=== PATIENT | male | born 1945 | race Caucasian/White ===

== ENCOUNTER 2016-11-25 08:54 | Emergency (ER) | payer OTHER ==
[~2016-11-25] VITALS: Ht 188 cm; Wt 96.4 kg
[~2016-11-25 08:54] MED LIST: ALBUTEROL SULF8.5 GM IH; ASPIRIN325 MG PO; CARVEDILOL3.125 MG PO; CEFTRIAXONE2 G1 IV; CLOPIDOGREL75 MG PO; ENDOCET 5-3251 EACH PO; FLORASTOR250 MG PO; LEVEMIR100 UNIT/2 SC; LOSARTAN POTASS25 MG PO; NITROSTAT0.4 MG SL; NOVOLOG PE100 UNITS/ SC; PRAVASTATIN SOD80 MG PO; RANEXA500 MG PO; TYLENOL REGULA325 MG PO; VENTOLIN HFA18 GM IH; Xylocaine 5% TP
[2016-11-25 09:38] LABS: BASOPHIL COUNT 0.1 K/uL (0-0.1); EOSINOPHIL (%) 3.3 % (0-5); EOSINOPHIL COUNT 0.3 K/uL (0-0.3); HEMATOCRIT 36.8 % (38.0-50.0); IMMATURE GRANULOCYTE (%) 0.2 % (0.0-0.7); INSTRUMENT ABS NEUTROPHIL CT 6.1 K/uL; LYMPHOCYTE COUNT 1.4 K/uL (1.0-2.8); MCH 28.5 PG (29.0-34.0); MCHC 35.1 G/DL (30.0-36.0); MCV 81.4 FL (86-99); MEAN PLAT.VOLUME 10.8 uM^3 (9.0-12.4); MONOCYTE (%) 8.5 % (3-12); MONOCYTE COUNT 0.7 K/uL (0-0.8); NEUTROPHIL (%) 71.2 % (45-76); NEUTROPHIL COUNT 6.1 K/uL (1.8-6.4); PLATELET COUNT 201 K/uL (156-360); RBC DIS.WIDTH-CV 12.3 % (11.8-14.6); RBC DIS.WIDTH-SD 36.1 % (39-53); RED BLOOD COUNT 4.52 M/uL (4.00-5.50); WHITE BLOOD COUNT 8.6 K/uL (4.1-10.2)
[2016-11-25 09:48] LABS: CHLORIDE 105 mEq/L (99-109); SODIUM 138 mEq/L (136-147)
[2016-11-25 09:51] LABS: GLUCOSE 196 mg/dL (70-99)
[2016-11-25 09:52] LABS: ANION GAP 8 MEQ/L (2-14)
[2016-11-25 09:53] LABS: TOTAL BILIRUBIN 0.5 mg/dL (0.0-1.0)
[2016-11-25 09:54] LABS: ALKALINE PHOSPHATASE 61 IU/L (3-129); GFR ESTIMATE (CALCULATED) > 59 mL/min/
[2016-11-25 09:55] LABS: UREA NITROGEN (BUN) 13 mg/dL (9-23)
[2016-11-25 10:17] LABS: TROP-I INTERPRETATION NEGATIVE; TROPONIN-I 0.01 ng/mL (0.0-0.30)
[2016-11-25 12:27] VITALS: BP 116/66
== END 2016-11-25 12:40 | disposition short-term general hospital (02) ==
LOC: EME → EDBD 08:54 → EME 12:40
PROVIDERS: Physician Assistant
DX: I25.110 Atherosclerotic heart disease of native coronary artery with unstable angina pectoris (principal); I48.91 Unspecified atrial fibrillation; E11.9 Type 2 diabetes mellitus without complications; Z79.4 Long term (current) use of insulin; I10 Essential (primary) hypertension; I25.2 Old myocardial infarction; Z95.5 Presence of coronary angioplasty implant and graft; J44.9 Chronic obstructive pulmonary disease, unspecified; Z86.74 Personal history of sudden cardiac arrest
CPT/HCPCS: 71020; 80053; 81003; 83880; 84484; 85025; 93005; 99281; 99285; J2405; J3010

== ENCOUNTER 2017-03-02 20:00 | Inpatient (IN) | payer OTHER ==
[~2017-03-02] VITALS: Ht 188 cm; Wt 102.2 kg
[2017-03-02 21:16] LABS: HEMATOCRIT 31.8 % (38.0-50.0); MCH 28.6 PG (29.0-34.0); MCV 84.4 FL (86-99); MEAN PLAT.VOLUME 10.2 uM^3 (9.0-12.4); PLATELET COUNT 371 K/uL (156-360); RBC DIS.WIDTH-CV 13.2 % (11.8-14.6); RBC DIS.WIDTH-SD 40.2 % (39-53); RED BLOOD COUNT 3.77 M/uL (4.00-5.50); WHITE BLOOD COUNT 11.7 K/uL (4.1-10.2)
[2017-03-02 21:25] LABS: CARBON DIOXIDE (BICARBONATE) 31.3 MEQ/L (20-31); CHLORIDE 103 mEq/L (99-109); POTASSIUM 4.4 mEq/L (3.7-5.4); SODIUM 137 mEq/L (136-147)
[2017-03-02 21:27] LABS: GLUCOSE 294 mg/dL (70-99)
[2017-03-02 21:28] LABS: ANION GAP 8 MEQ/L (2-14)
[2017-03-02 21:31] LABS: GFR ESTIMATE (CALCULATED) > 59 mL/min/
[2017-03-02 21:32] LABS: UREA NITROGEN (BUN) 23 mg/dL (9-23)
[2017-03-02 21:39] LABS: TROP-I INTERPRETATION NEGATIVE; TROPONIN-I 0.05 ng/mL (0.0-0.30)
[2017-03-02] MEDS ORDERED: OXAYDO5 MG PO (23:18)
[2017-03-02] MEDS ORDERED: HUMULIN R100 UNITS/ SC ×2 (23:20→23:39)
[2017-03-02] MEDS ORDERED: ZANTAC150 MG PO (23:22)
[2017-03-02] MEDS ORDERED: NEURONTIN600 MG PO (23:23)
[2017-03-02] MEDS ORDERED: LIPITOR80 MG PO (23:24)
[2017-03-02] MEDS ORDERED: METOPROLOL TART25 MG PO (23:27)
[2017-03-02] MEDS ORDERED: GLUCOSE4 GM PO (23:27)
[2017-03-02] MEDS ORDERED: PROAIR RESPICL90 MCG IH (23:30)
[2017-03-02] MEDS ORDERED: COLACE100 MG PO (23:31)
[2017-03-02] MEDS ORDERED: LASIX20 MG PO (23:32)
[2017-03-02] MEDS ORDERED: K-TAB10 MEQ PO (23:33)
[2017-03-02] MEDS ORDERED: MUPIROCIN22 GM TP (23:35)
[2017-03-02] MEDS ORDERED: TYLENOL REGULA325 MG PO (23:36)
[2017-03-02] MEDS ORDERED: MILK OF MAGN PO (23:38)
[2017-03-02] MEDS ORDERED: MUCUS RELIEF C PO (23:43)
[2017-03-02] MEDS ORDERED: LANTUS 10100 UNITS/ SC (23:45)
[2017-03-03] VITALS (7 sets, daily range): BP systolic 100–128; BP diastolic 59–76
[2017-03-03 01:38] LABS: INTER. NORMALIZED RATIO 1.2; PROTHROMBIN TIME 14.1 SEC (10.2-12.9)
[2017-03-03 01:41] LABS: PTT 27.9 SEC (25-37)
[2017-03-03 07:57] LABS: POINT-OF-CARE METER ID UU14174216
[2017-03-03 09:34] LABS: HEMATOCRIT 33.7 % (38.0-50.0); MCH 28.3 PG (29.0-34.0); MCHC 33.5 G/DL (30.0-36.0); MCV 84.3 FL (86-99); MEAN PLAT.VOLUME 10.2 uM^3 (9.0-12.4); PLATELET COUNT 387 K/uL (156-360); RBC DIS.WIDTH-CV 13.3 % (11.8-14.6); RBC DIS.WIDTH-SD 40.8 % (39-53); WHITE BLOOD COUNT 12.9 K/uL (4.1-10.2)
[2017-03-03 11:18] LABS: TROP-I INTERPRETATION NEGATIVE; TROPONIN-I 0.07 ng/mL (0.0-0.30)
[2017-03-03 11:22] LABS: POINT-OF-CARE METER ID UU14174216
[2017-03-03 13:13] LABS: Estimated Average Glucose 223 mg/dL (70-123); HEMOGLOBIN A1c (GLYCOHEMOGLOB) 9.4 % HGB (Below 5.7)
[2017-03-03 13:14] LABS: INTER. NORMALIZED RATIO 1.3; PROTHROMBIN TIME 14.7 SEC (10.2-12.9)
[2017-03-03 13:17] LABS: PTT 65.4 SEC (25-37)
[2017-03-03 16:25] LABS: POINT-OF-CARE METER ID UU14174216
[2017-03-03 17:48] LABS: TROP-I INTERPRETATION NEGATIVE; TROPONIN-I 0.07 ng/mL (0.0-0.30)
[2017-03-03 21:01] LABS: POINT-OF-CARE METER ID UU13113698
[2017-03-03 23:10] LABS: TROP-I INTERPRETATION NEGATIVE; TROPONIN-I 0.07 ng/mL (0.0-0.30)
[2017-03-04 04:06] VITALS: BP 105/84
[2017-03-04 06:02] LABS: BASOPHIL COUNT 0.1 K/uL (0-0.1); EOSINOPHIL (%) 4.9 % (0-5); EOSINOPHIL COUNT 0.7 K/uL (0-0.3); HEMATOCRIT 32.3 % (38.0-50.0); IMMATURE GRANULOCYTE (%) 0.7 % (0.0-0.7); IMMATURE GRANULOCYTE COUNT 0.1 K/uL; INSTRUMENT ABS NEUTROPHIL CT 10.3 K/uL; LYMPHOCYTE COUNT 2.2 K/uL (1.0-2.8); MCH 27.9 PG (29.0-34.0); MCHC 33.1 G/DL (30.0-36.0); MCV 84.3 FL (86-99); MEAN PLAT.VOLUME 10.4 uM^3 (9.0-12.4); MONOCYTE (%) 7.2 % (3-12); NEUTROPHIL (%) 71.3 % (45-76); NEUTROPHIL COUNT 10.3 K/uL (1.8-6.4); PLATELET COUNT 382 K/uL (156-360); RBC DIS.WIDTH-CV 13.3 % (11.8-14.6); RBC DIS.WIDTH-SD 40.7 % (39-53); RED BLOOD COUNT 3.83 M/uL (4.00-5.50); WHITE BLOOD COUNT 14.4 K/uL (4.1-10.2)
[2017-03-04 06:14] LABS: INTER. NORMALIZED RATIO 1.3; PROTHROMBIN TIME 14.7 SEC (10.2-12.9)
[2017-03-04 06:17] LABS: PTT 61.6 SEC (25-37)
[2017-03-04 06:37] LABS: ANION GAP 6 MEQ/L (2-14); CHLORIDE 102 MEQ/L (99-109); POTASSIUM 4.3 MEQ/L (3.7-5.4); SAMPLE HEMOLYSIS CHECK 0; SAMPLE ICTERIC CHECK 0; SAMPLE LIPEMIA CHECK 0; SODIUM 135 MEQ/L (136-147); TOTAL BILIRUBIN 0.5 MG/DL (0.0-1.0)
[2017-03-04 06:42] LABS: ALKALINE PHOSPHATASE 74 IU/L (3-129); GFR ESTIMATE (CALCULATED) > 59 mL/min/; UREA NITROGEN (BUN) 21 mg/dL (9-23)
[2017-03-04 06:47] LABS: GLUCOSE 120 mg/dL (70-99)
[2017-03-04 07:24] VITALS: BP 110/65
[2017-03-04 08:06] LABS: POINT-OF-CARE METER ID UU14314088
[2017-03-04 11:08] LABS: POINT-OF-CARE METER ID UU14174216
[2017-03-04 12:09] VITALS: BP 119/57
[2017-03-04 16:15] LABS: POINT-OF-CARE METER ID UU14174216
[2017-03-04 19:37] VITALS: BP 137/61
[2017-03-04 21:38] LABS: POINT-OF-CARE METER ID UU14314088
[2017-03-04 23:16] VITALS: BP 117/61
[2017-03-05 03:43] VITALS: BP 133/76
[2017-03-05 06:00] LABS: BASOPHIL COUNT 0.1 K/uL (0-0.1); EOSINOPHIL (%) 4.9 % (0-5); EOSINOPHIL COUNT 0.6 K/uL (0-0.3); HEMATOCRIT 31.8 % (38.0-50.0); IMMATURE GRANULOCYTE (%) 0.6 % (0.0-0.7); IMMATURE GRANULOCYTE COUNT 0.1 K/uL; INSTRUMENT ABS NEUTROPHIL CT 9.3 K/uL; LYMPHOCYTE COUNT 1.6 K/uL (1.0-2.8); MCHC 33.3 G/DL (30.0-36.0); MCV 84.1 FL (86-99); MEAN PLAT.VOLUME 10.7 uM^3 (9.0-12.4); MONOCYTE (%) 7.9 % (3-12); NEUTROPHIL (%) 73.3 % (45-76); NEUTROPHIL COUNT 9.3 K/uL (1.8-6.4); PLATELET COUNT 396 K/uL (156-360); RBC DIS.WIDTH-CV 13.3 % (11.8-14.6); RBC DIS.WIDTH-SD 40.6 % (39-53); RED BLOOD COUNT 3.78 M/uL (4.00-5.50); WHITE BLOOD COUNT 12.6 K/uL (4.1-10.2)
[2017-03-05 06:31] LABS: ALKALINE PHOSPHATASE 79 IU/L (3-129); ANION GAP 8 MEQ/L (2-14); CHLORIDE 105 MEQ/L (99-109); GFR ESTIMATE (CALCULATED) > 59 mL/min/; GLUCOSE 148 mg/dL (70-99); POTASSIUM 4.1 MEQ/L (3.7-5.4); SAMPLE HEMOLYSIS CHECK 0; SAMPLE ICTERIC CHECK 0; SAMPLE LIPEMIA CHECK 0; SODIUM 139 MEQ/L (136-147); TOTAL BILIRUBIN 0.5 MG/DL (0.0-1.0); UREA NITROGEN (BUN) 23 mg/dL (9-23)
[2017-03-05 07:48] LABS: POINT-OF-CARE METER ID UU13113781
[2017-03-05 08:04] VITALS: BP 112/61
[2017-03-05] MEDS ORDERED: ELIQUIS5 MG PO ×2 (09:37→09:38)
== END 2017-03-05 11:05 | DRG 176 ==
LOC: EME 20:00 → 4EAST 03-03 00:42 → EDOF 03-03 00:42 → ENRESERV 03-03 00:44 → 4EAST 03-03 03:29
PROVIDERS: Emergency Medicine; Hospitalist
DX: I26.99 Other pulmonary embolism without acute cor pulmonale (principal); I25.119 Atherosclerotic heart disease of native coronary artery with unspecified angina pectoris; E11.42 Type 2 diabetes mellitus with diabetic polyneuropathy; I10 Essential (primary) hypertension; I48.1 Persistent atrial fibrillation; I48.2 Chronic atrial fibrillation; I48.92 Unspecified atrial flutter; R91.1 Solitary pulmonary nodule; J44.9 Chronic obstructive pulmonary disease, unspecified; R00.0 Tachycardia, unspecified; E78.5 Hyperlipidemia, unspecified; J45.20 Mild intermittent asthma, uncomplicated; K21.9 Gastro-esophageal reflux disease without esophagitis; Z95.1 Presence of aortocoronary bypass graft; Z95.5 Presence of coronary angioplasty implant and graft; Z79.01 Long term (current) use of anticoagulants; Z79.4 Long term (current) use of insulin; Z82.49 Family history of ischemic heart disease and other diseases of the circulatory system; Z86.74 Personal history of sudden cardiac arrest
CPT/HCPCS: 71010; 71275; 80048; 80053; 82803; 82948; 83036; 83605; 83880; 84484; 85025; 85027; 85610; 85730; 87040; 90686; 93005; 93306; 93970; 94010; 94640; 94799; 99202; 99281; 99285; J1815

== ENCOUNTER 2017-03-09 10:50 | Observation (INO) | payer OTHER ==
[~2017-03-09] VITALS: Ht 188 cm; Wt 101.9 kg
[~2017-03-09 10:50] MED LIST changes: +COLACE100 MG PO; +ELIQUIS5 MG PO; +GLUCOSE4 GM PO; +HUMULIN R100 UNITS/ SC; +K-TAB10 MEQ PO; +LANTUS 10100 UNITS/ SC; +LASIX20 MG PO; +LIPITOR80 MG PO; +METOPROLOL TART25 MG PO; +MILK OF MAGN PO; +MUCUS RELIEF C PO; +MUPIROCIN22 GM TP; +NEURONTIN600 MG PO; +OXAYDO5 MG PO; +PROAIR RESPICL90 MCG IH; +ZANTAC150 MG PO
[2017-03-09 11:21] LABS: HEMATOCRIT 33.4 % (38.0-50.0); MCH 28.7 PG (29.0-34.0); MCHC 33.8 G/DL (30.0-36.0); MCV 84.8 FL (86-99); MEAN PLAT.VOLUME 10.6 uM^3 (9.0-12.4); PLATELET COUNT 415 K/uL (156-360); RBC DIS.WIDTH-CV 13.5 % (11.8-14.6); RBC DIS.WIDTH-SD 41.5 % (39-53); RED BLOOD COUNT 3.94 M/uL (4.00-5.50); WHITE BLOOD COUNT 10.7 K/uL (4.1-10.2)
[2017-03-09 11:31] LABS: CHLORIDE 106 mEq/L (99-109); INTER. NORMALIZED RATIO 1.8; POTASSIUM 4.7 mEq/L (3.7-5.4); PROTHROMBIN TIME 20.6 SEC (10.2-12.9); SODIUM 137 mEq/L (136-147)
[2017-03-09 11:32] LABS: GLUCOSE 185 mg/dL (70-99)
[2017-03-09 11:34] LABS: ANION GAP 6 MEQ/L (2-14)
[2017-03-09 11:36] LABS: GFR ESTIMATE (CALCULATED) > 59 mL/min/
[2017-03-09 11:37] LABS: UREA NITROGEN (BUN) 26 mg/dL (9-23)
[2017-03-09 11:42] LABS: TROP-I INTERPRETATION NEGATIVE; TROPONIN-I 0.05 ng/mL (0.0-0.30)
[2017-03-09] MEDS ORDERED: GLUCOPHAGE1000 MG PO (12:18)
[2017-03-09] MEDS ORDERED: LO-DOSE ASPIRIN81 M1 PO (12:23)
[2017-03-09] MEDS ORDERED: ELIQUIS5 MG PO ×2 (12:25→12:27)
[2017-03-09 14:59] LABS: TROP-I INTERPRETATION NEGATIVE; TROPONIN-I 0.06 ng/mL (0.0-0.30)
[2017-03-09 15:05] LABS: HDL CHOLESTEROL 25 MG/DL (Desirable>=40); LDL CHOLESTEROL 44 mg/dL (Desirable<100); NON-HDL CHOLESTEROL 61 mg/dL (Desirable<160); TOTAL CHOLESTEROL 86 mg/dL (Desirable<200); TRIGLYCERIDES 87 MG/DL (Normal: <150)
[2017-03-09 15:15] VITALS: BP 141/67
[2017-03-09 17:22] LABS: POINT-OF-CARE METER ID UU13113700
[2017-03-09 20:13] VITALS: BP 128/67
[2017-03-09 21:09] LABS: TROP-I INTERPRETATION NEGATIVE; TROPONIN-I 0.06 ng/mL (0.0-0.30)
[2017-03-09 21:28] LABS: POINT-OF-CARE METER ID UU13113700
[2017-03-09 23:29] VITALS: BP 132/74
[2017-03-10 03:32] VITALS: BP 103/58
[2017-03-10 08:14] LABS: POINT-OF-CARE METER ID UU14162513
[2017-03-10 09:01] VITALS: BP 113/70
== END 2017-03-10 11:24 ==
LOC: EME → EDBD 10:50 → EME 10:50 → EDOF 14:08 → 5WEST 14:08 → EDOF 14:08 → ENRESERV 14:10 → EDOF 14:13 → ENRESERV 14:26 → 5WEST 14:53 → ENRESERV 16:31 → 5WEST 16:45
PROVIDERS: Hospitalist
DX: R07.9 Chest pain, unspecified (principal); I25.10 Atherosclerotic heart disease of native coronary artery without angina pectoris; I11.0 Hypertensive heart disease with heart failure; I50.32 Chronic diastolic (congestive) heart failure; Z86.711 Personal history of pulmonary embolism; Z95.1 Presence of aortocoronary bypass graft; Z79.01 Long term (current) use of anticoagulants; K59.00 Constipation, unspecified; E11.40 Type 2 diabetes mellitus with diabetic neuropathy, unspecified; Z79.4 Long term (current) use of insulin; Z86.74 Personal history of sudden cardiac arrest; Z82.49 Family history of ischemic heart disease and other diseases of the circulatory system; Z88.5 Allergy status to narcotic agent
CPT/HCPCS: 71020; 80048; 80061; 82948; 84484; 85027; 85610; 85730; 93005; 99281; 99285; G0378; J1815; J7030